=== PATIENT | female | born 1975 | race Caucasian/White ===

== ENCOUNTER → 2019-10-22 | Day surgery (SDC) | payer BC, MEDICAID ==
[~2019-10-22] MED LIST: LIDOCAINE HCL/EPINEPHRINE 1%-EPI 1:100,000 20 ML VIAL ONE; SODIUM BICARBONATE 4% (2.4MEQ) 5ML VIAL IV ONE; motrin
== END | disposition home or self-care (01) ==
LOC: RAD 10:04
PROVIDERS: ATTEND Surgery
DX: C50.911 Malignant neoplasm of unspecified site of right female breast (principal); Z87.891 Personal history of nicotine dependence; I34.1 Nonrheumatic mitral (valve) prolapse; Z98.890 Other specified postprocedural states
CPT/HCPCS: 19285; J3490

== ENCOUNTER 2019-10-25 06:15 | Day surgery (SDC) | payer MEDICAID ==
[~2019-10-25] VITALS: Ht 167.6 cm; Wt 58.1 kg
[~2019-10-25 06:15] MED LIST changes: -LIDOCAINE HCL/EPINEPHRINE 1%-EPI 1:100,000 20 ML VIAL ONE; -SODIUM BICARBONATE 4% (2.4MEQ) 5ML VIAL IV ONE
[2019-10-25] MEDS ORDERED: LACTATED RINGERS 1,000 ML IV SCH (06:45)
[2019-10-25] MEDS ORDERED: BUPIVACAINE HCL 0.5% (5MG/ML) 50ML ONE (06:50)
[2019-10-25] MEDS ORDERED: METHYLENE BLUE 50 MG/10 ML AMP IV ONE (06:50)
[2019-10-25] MEDS ORDERED: SKIN ADHESIVE 0.7 GM EA TOP ONE (06:51)
[2019-10-25] MEDS ORDERED: FLEC50TA2 PO (08:35)
[2019-10-25] MEDS ORDERED: CHELATED IRON PO (08:43)
[2019-10-25] MEDS ORDERED: ASPI-1497 PO (08:43)
[2019-10-25] MEDS ORDERED: METO25TA6 PO (08:43)
[2019-10-25] MEDS ORDERED: SUCR1TAB PO (08:43)
[2019-10-25] MEDS ORDERED: LORA-250 PO (08:43)
[2019-10-25] MEDS ORDERED: FENTANYL CITRATE/PF 50MCG/ML 2ML VIAL ONE ×2 (09:39→09:56)
[2019-10-25] MEDS ORDERED: GLYCOPYRROLATE 0.2 MG/ML 2ML VIAL ONE (09:40)
[2019-10-25] MEDS ORDERED: PROPOFOL 200MG/20ML VIAL IV ONE (09:40)
[2019-10-25] MEDS ORDERED: NEOSTIGMINE METHYLSULFATE 1MG/ML 10 ML VIAL ONE (09:40)
[2019-10-25] MEDS ORDERED: CEFAZOLIN SODIUM 1000MG/VIAL ONE (09:40)
[2019-10-25] MEDS ORDERED: ONDANSETRON HCL 4MG/2ML INJ ONE (09:40)
[2019-10-25] MEDS ORDERED: MIDAZOLAM HCL 2 MG/2 ML VIAL ONE (09:40)
[2019-10-25] MEDS ORDERED: SODIUM CHLORIDE 0.9% 10ML VIAL ONE (09:40)
[2019-10-25] MEDS ORDERED: SUCCINYLCHOLINE CHLORIDE 200MG/10ML IV ONE (09:40)
[2019-10-25] MEDS ORDERED: ROCURONIUM BROMIDE 10MG/ML VIAL 5ML IV ONE (09:40)
[2019-10-25] MEDS ORDERED: METOCLOPRAMIDE HCL 10MG/2ML VIAL ONE (09:40)
[2019-10-25] MEDS ORDERED: SODIUM CHLORIDE 0.9% 1,000 ML IV ONE (11:34)
[2019-10-25] MEDS ORDERED: MEPERIDINE HCL/PF 25MG/ML CPJ IV PRN ×2 (11:45)
[2019-10-25] MEDS ORDERED: ONDANSETRON HCL 4MG/2ML INJ IV PRN (11:45)
[2019-10-25 13:36] VITALS: BP 154/72
== END 2019-10-25 14:20 | disposition home or self-care (01) ==
LOC: OR 06:15 → EDSTATUS 09:00 → OR 14:20
PROVIDERS: ATTEND Surgery
DX: C50.911 Malignant neoplasm of unspecified site of right female breast (principal); I48.91 Unspecified atrial fibrillation; K21.9 Gastro-esophageal reflux disease without esophagitis; F17.210 Nicotine dependence, cigarettes, uncomplicated; Z88.1 Allergy status to other antibiotic agents; Z88.5 Allergy status to narcotic agent; Z88.8 Allergy status to other drugs, medicaments and biological substances; Z79.82 Long term (current) use of aspirin; Z79.899 Other long term (current) drug therapy; Z90.710 Acquired absence of both cervix and uterus; Z98.890 Other specified postprocedural states
CPT/HCPCS: 19301; 38525; 71045; 78195; 88307; C9728; J0330; J0690; J2175; J2250; J2405; J2704; J2765; J3010; J3490; Q9968; J2710